=== PATIENT | female | born 1990 | race American Indian/Alaskan Native ===

== ENCOUNTER 2018-02-08 15:44 | Emergency (ER) | payer OTHER ==
[2018-02-08] MEDS ORDERED: Sodium Chloride 0.9% 1,000 ML ONE (17:06)
[2018-02-08 17:18] LABS: SQUAMOUS EPITHIAL 2 /hpf (0-5); URINE BILIRUBIN NEGATIVE (NEGATIVE); URINE BLOOD NEGATIVE (NEGATIVE); URINE CLARITY Clear (Clear); URINE COLOR Yellow (YELLOW); URINE GLUCOSE (UA) NORMAL (Normal); URINE LEUKOCYTE ESTERASE NEG Leu/uL (Negative); URINE PROTEIN NEGATIVE (NEGATIVE); URINE UROBILINOGEN NORMAL mg/dL (0.2-1.0)
[2018-02-08 17:23] LABS: BASO % 0.2 % (0.0-2.0); EOS % 0.2 % (0.0-4.0); HEMOGLOBIN 13.6 g/dL (11.0-16.0); LYMPH # 0.5 K/uL (1.0-4.3); MEAN CORPUSCULAR HEMOGLOBIN 31.9 pg (27.0-31.0); MEAN CORPUSCULAR HGB CONC 34.7 g/dL (33.0-37.0); MEAN PLATELET VOLUME 8.9 fL (7.2-11.7); MONO # 0.3 K/uL (0.0-0.8); MONO % 5.6 % (0.0-10.0); NEUT # 3.8 K/uL (1.8-7.0); NRBC % 0.1 % (0.0-2.0); RBC 4.26 Mil/uL (3.80-5.20); RED CELL DISTRIBUTION WIDTH 12.8 % (11.5-14.5); WHITE BLOOD COUNT 4.6 K/uL (4.8-10.8)
--- NOTE | 2018-02-08 17:35 | C.PDOC ---
History Of Present Illness 28 y/o female, LMP 5, presents to ED for complaints of abdominal pain associated with nausea and vaginal spotting. Patient describes pain as tightness. Denies vomiting, diarrhea, or dysuria. Time Seen by Provider: 02/08/18 16:30 Chief Complaint (Nursing): Abdominal Pain History Per: Patient History/Exam Limitations: no limitations Onset/Duration Of Symptoms: Hrs Current Symptoms Are (Timing): Still Present Location Of Pain/Discomfort: Suprapubic Radiation Of Pain To:: None Quality Of Discomfort: Other (Tightness) Associated Symptoms: Nausea. denies: Fever, Chills, Vomiting, Diarrhea Exacerbating Factors: None Alleviating Factors: None Last Bowel Movement: Today Recent travel outside of the [place]: No Abnormal Vaginal Bleeding: No Past Medical History Reviewed: Historical Data, Nursing Documentation, Vital Signs Vital Signs: Last Vital Signs Temp 99.0 F 02/08/18 15:51 Pulse 114 H 02/08/18 15:51 Resp 18 02/08/18 15:51 BP 111/75 02/08/18 15:51 Pulse Ox 98 02/08/18 17:38 - Medical History PMH: No Chronic Diseases Surgical History: No Surg Hx Family History: States: No Known Family Hx - Social History Hx Alcohol Use: No Hx Substance Use: No Review Of Systems Except As Marked, All Systems Reviewed And Found Negative. Gastrointestinal: Positive for: Nausea, Abdominal Pain Physical Exam - Physical Exam Appears: Well, Non-toxic, No Acute Distress Skin: Normal Color, Warm, Dry Head: Atraumatic, Normacephalic Eye(s): bilateral: Normal Inspection, PERRL, EOMI Nose: Normal Oral Mucosa: Moist Neck: Supple Chest: Symmetrical, No Tenderness Cardiovascular: Rhythm Regular, No Murmur Respiratory: Normal Breath Sounds, No Decreased Breath Sounds, No Rales, No Rhonchi, No Wheezing Gastrointestinal/Abdominal: Soft, Tenderness (Suprapubic ) Extremity: Normal ROM, No Deformity Extremity: Bilateral: Atraumatic, Normal Color And Temperature, Normal ROM Neurological/Psych: Oriented x3, Normal Speech, Normal Cognition Gait: Steady ED Course And Treatment - Laboratory Results Result Diagrams: 02/08/18 17:17 02/08/18 17:17 O2 Sat by Pulse Oximetry: 98 (RA) Pulse Ox Interpretation: Normal Medical Decision Making Medical Decision Making: Administered Toradol and IV fluids. Ordered blood work, chlamydia/GC RNA, urine culture, urinalysis and transvaginal US. Impression: - Suprapubic abdominal pain with no vaginal discharge. Disposition - Disposition Disposition Time: 19:00 Condition: STABLE Forms: [facility] ([facility]) - Clinical Impression Clinical Impression: Abdominal pain - Scribe Statement The provider has reviewed the documentation as recorded by the Scribe Christy Mccracken All medical record entries made by the Scribe were at my direction and personally dictated by me. I have reviewed the chart and agree that the record accurately reflects my personal performance of the history, physical exam, medical decision making, and the department course for this patient. I have also personally directed, reviewed, and agree with the discharge instructions and disposition. Physician Patient Turnover Patient Signed Over To: Manohar Gann Handoff Comments: pending ultrasound, labs, reeavaluation and disposition
[2018-02-08 17:37] LABS: ALB/GLOB RATIO 1.3 (1.0-2.1); ALBUMIN 4.8 g/dL (3.5-5.0); ALT/SGPT 17 U/L (9-52); AST/SGOT 23 U/L (14-36); BLOOD UREA NITROGEN 11 mg/dL (7-17); CALCIUM 8.7 mg/dl (8.6-10.4); GFR AFRICAN-AMERICAN > 60; GFR NON-AFRICAN AMERICAN > 60
--- NOTE | 2018-02-08 19:00 | US ---
EXAM: US Pelvis Complete, Transabdominal US Pelvis, Transvaginal US Duplex Arterial/Venous of the Pelvis, Complete EXAM DATE/TIME: 02/08/2018 4:58 PM CLINICAL HISTORY: 28 years old, female; Pain; Other: Pelvic pain; LMP 01/24/2018; Additional info: Suprapubic abd. Pain TECHNIQUE: Real-time transabdominal and transvaginal pelvic ultrasound (complete) with image documentation. Transvaginal imaging was used for better evaluation of the endometrium and adnexa. Real-time duplex ultrasound scan of the arterial and venous flow of the pelvis with color Doppler flow and spectral waveform analysis. COMPARISON: There are no prior studies for comparison. FINDINGS: Uterus/cervix: Uterus is anteflexed. The uterus measures approximately 9.4 x 5 x 6.5 cm. Endometrium measures approximately 6.3 mm in width. Right ovary: Right ovary measures approximately 3.8 x 2.2 x 3.2 cm.There are multiple small follicles. There is intraovarian blood flow. Left ovary: Left ovary measures approximately 4.4 x 2.4 x 4.2 cm. There is a corpus luteum the left ovary. Free fluid: There is a small amount of fluid in the cul-de-sac. Bladder: Bladder is completely empty. IMPRESSION: Small amount of free fluid in the cul-de-sac, physiologic versus recent cyst rupture; corpus luteum the left ovary; no torsion
[2018-02-08 19:40] VITALS: BP 106/54; PULSE 77; RESP 20; TEMP 98.2; O2SAT 99
== END 2018-02-08 19:46 | disposition home or self-care (01) ==
LOC: C.ER 15:44
DX: R10.30 Lower abdominal pain, unspecified (principal)
CPT/HCPCS: 76830; 76856; 80053; 81001; 85025; 87086; 87491; 87591; 96374; 96375; 99285; J1885; J2765